=== PATIENT | female | born 1995 | race American Indian/Alaskan Native ===

== ENCOUNTER 2017-06-27 18:48 | Outpatient (CLI) | payer MEDICAID ==
[2017-06-27 19:26] VITALS: BP 114/60
[2017-06-27] MEDS ORDERED: LACTATED RINGERS 500 ML IV ONE (19:39)
[2017-06-27 20:23] LABS: Bilirubin,Urine NEG (Negative); Blood,Urine NEG (Negative); Ketones,Urine NEG (Negative); Leukocyte Esterase,Urine NEG (Negative); Mucus,Urine FEW /HPF; Nitrite,Urine NEG (Negative)
--- NOTE | 2017-06-29 10:14 | Ultrasound Report ---
OB ULTRASOUND History: well being, abdominal pain during . Comparison: None at this facility. Technique: Transabdominal ultrasound with Doppler interrogation. Gestation: Single Position: Cephalic Amniotic Fluid: Normal LIZZIE = 11.9 cm Placenta: Posterior, left lateral Placental Grade: 0 Heart Rate: 156 BPM Cervical length: 3.2 cm (Normal > 3 cm) NEUROANATOMY VISUALIZED: Choroid Plexus. 4 mm choroid plexus cyst on the left side is noted. Cisterna Magnum Cerebellum Lateral Ventricle ANATOMY VISUALIZED: Stomach Kidneys Bladder Diaphragm 4 Chamber Heart Heart 3 Vessel Cord Abd. Cord Insert SPINE VISUALIZED: Limited spine due to position The following are not demonstrated due to maternal body habitus or lie: Spine BPD: 5.9 cm = 24 w 1 d HC: 22.5 cm = 24 w 4 d AC: 19.9 cm = 24 w 4 d FL: 4.4 cm = 24 w 4 d HC/AC Ratio: 1.13 Cephalic Index: 76.3 Estimated Weight: 704 grams LMP: Uncertain Clinical age = w d EDC: US Gest. Age = 24 w 3 d EDC: 10/14/17
== END 2017-06-27 20:58 | disposition home or self-care (01) ==
LOC: TRG 18:48
PROVIDERS: ATTEND Obstetrics & Gynecology
DX: O47.02 False labor before 37 completed weeks of gestation, second trimester (principal); Z3A.24 24 weeks gestation of pregnancy
CPT/HCPCS: 36415; 76805; 81001; 82731; 96360; J7120

== ENCOUNTER 2017-10-09 09:36 | Inpatient (IN) | payer MEDICAID ==
[2017-10-09] MEDS ORDERED: BICITRA PO ONE ×2 (10:00→10:17)
[2017-10-09] MEDS ORDERED: ANCEF/STERILE WATER 2 GM/20 ML 2 GM/20 ML SYRINGE IV NR (10:00)
[2017-10-09] MEDS ORDERED: PEPCID IV ONE ×2 (10:00→10:17)
[2017-10-09] MEDS ORDERED: PITOCin/NS 20 UNIT/1000ML DRIP 20 UNITS/1,000 ML BAG IV SCH ×3 (10:00→15:00)
[2017-10-09] MEDS ORDERED: REGLAN IV ONE ×2 (10:00→10:17)
--- NOTE | 2017-10-09 10:07 | History and Physical Report ---
History of Present Illness Date of examination: 10/09/17 Date of admission: 10/09/17 09:36 Chief complaint: scheduled repeat c/sec at 39 weeks with BTL Past History Past Medical History: no pertinent history Past Surgical History: section (failure to dilate) Family/Genetic History: diabetes, hypertension Social history: no significant social history, single. denies: smoking, alcohol abuse, prescription drug abuse - Obstetrical History Expected Date of Delivery: 10/14/17 Actual Gestation: 39 Week(s) 2 Day(s) : 3 Para: 1 Hx # Term Pregnancies: 1 Number of Pregnancies: 0 Spontaneous Abortions: 1 Induced : 0 Number of Living Children: 1 Medications and Allergies Allergies Allergy/AdvReac Type Severity Reaction Status Date / Time No Known Allergies Allergy Verified 06/27/17 19:39 Active Meds: Active Medications Cefazolin Sodium (Ancef/Sterile Water 2 Gm/20 Ml) 2 gm in 20 mls @ 80 mls/hr IV PREOP NR PRN Reason: Protocol Stop: 10/09/17 23:00 Lactated Ringer's (Lactated Ringers) 1,000 mls @ 2,250 mls/hr IV PREOP BECKA Stop: 10/10/17 10:27 Oxytocin/Sodium Chloride (Pitocin/Ns 20 Unit/1000ml Drip) 20 units in 1,000 mls @ 0 mls/hr IV TITR BECKA PRN Reason: As Directed Review of Systems All systems: negative - Vital Signs Vital signs: Vital Signs Pulse BP 109 H 120/61 10/09/17 10:01 10/09/17 10:01 Temp Pulse Resp BP Pulse Ox 109 H 120/61 10/09/17 10:01 10/09/17 10:01 - Physical Exam Breasts: Positive: normal Cardiovascular: Regular rate, Normal S1 Lungs: Positive: Clear to auscultation, Normal air movement Abdomen: Positive: normal appearance, soft, normal bowel sounds. Negative: distention, tenderness, guarding Genitourinary (Female): Positive: normal external genitalia, normal perenium Vulva: both: normal Vagina: Positive: normal moisture Uterus: Positive: normal size Adnexa: both: normal Anus/Rectum: Positive: normal perianal skin Extremities: Positive: normal - Obstetrical FHR: category 1 Results All other labs normal. Assessment and Plan A/P HD#1 previous c/sec desires permananet contraception discussed perm minimal success in reversal discussed r/b/a of c/sec risk of bleeding infection damage to pelvic and non pelvic organs risk of blood clots, pain, abx, and will proceed with surgery
[2017-10-09] MEDS: LACTATED RINGERS 1,000 ML IV SCH ×2 (10:15→10:54)
[2017-10-09 10:42] LABS: Basophils % (Auto) 0.3 % (0.0-1.8); Eosinophils % (Auto) 0.6 % (0.0-4.3); Hemoglobin 10.8 gm/dl (10.1-14.3); Mean Corpuscular HGB Conc 34 % (30-34); Mean Corpuscular Hemoglobin 29 pg (28-32); Mean Corpuscular Volume 86 fl (79-97); Platelet Count 341 K/mm3 (140-440); Red Cell Distribution Width 14.4 % (13.2-15.2)
[2017-10-09] MEDS ORDERED: LACTATED RINGERS 1,000 ML IV SCH (11:00)
--- NOTE | 2017-10-09 12:59 | Anesthesia Consultation ---
Anesthesia Consult and Med Hx Date of service: 10/09/17 - Airway Anesthetic Teeth Evaluation: Good ROM Head & Neck: Adequate Mallampati Class: Class II Intubation Access Assessment: Probably Good - Pre-Operative Health Status ASA Pre-Surgery Classification: ASA2 Proposed Anesthetic Plan: Epidural, Spinal - Pulmonary Hx Asthma: No COPD: No Hx Pneumonia: No - Cardiovascular System Hx Hypertension: No - Central Nervous System Hx Seizures: No Hx Psychiatric Problems: No - Endocrine Hx Renal Disease: No Hx End Stage Renal Disease: No Hx Hypothyroidism: No Hx Hyperthyroidism: No - Hematic Hx Anemia: No Hx Sickle Cell Disease: No - Other Systems Hx Alcohol Use: No
[2017-10-09] MEDS ORDERED: SODIUM CHLORIDE FLUSH SYRINGE 10 ML IV NR ×2 (13:00→15:00)
[2017-10-09] MEDS ORDERED: MORPHINE IV PRN ×3 (13:00→14:49)
[2017-10-09] MEDS ORDERED: BENADRYL IV PRN (13:00)
[2017-10-09] MEDS ORDERED: NARCAN 0.4 MG/1 ML IV PRN ×2 (13:00→14:49)
[2017-10-09] MEDS ORDERED: PHENERGAN PR PRN (13:00)
[2017-10-09] MEDS ORDERED: ZOFRAN IV PRN (13:00)
--- NOTE | 2017-10-09 13:00 | Anesthesia Day of Surgery ---
Anesthesia Day of Surgery - Day of Surgery Patient Examined: Yes Patient H&P Reviewed: Yes Patient is NPO: Yes (@7AM)
[2017-10-09] MEDS ORDERED: MORPHINE ONE (13:11)
[2017-10-09] MEDS ORDERED: NEO SYNEPHRINE/NS Syringe(OR USE) IV ONE (13:51)
[2017-10-09] MEDS ORDERED: NACL 0.9% 1000 ML 1,000 ML ONE (13:51)
[2017-10-09] MEDS ORDERED: NACL 0.9% IR ONE (13:56)
[2017-10-09] MEDS ORDERED: WATER FOR IRRIG STERILE IR ONE (13:56)
[2017-10-09] MEDS ORDERED: XYLOCAINE MPF 2% ONE (14:25)
[2017-10-09] MEDS ORDERED: DILAUDID ONE (14:27)
[2017-10-09] MEDS ORDERED: MILK OF MAGNESIA PO PRN (14:49)
[2017-10-09] MEDS ORDERED: MYLICON PO PRN (14:49)
[2017-10-09] MEDS ORDERED: TUCKS PAD TP PRN (14:49)
[2017-10-09] MEDS ORDERED: LANSINOH TP PRN (14:49)
[2017-10-09] MEDS ORDERED: ANUCORT-HC PR PRN (14:49)
[2017-10-09] MEDS ORDERED: TYLENOL PO PRN (14:49)
[2017-10-09] MEDS ORDERED: SENOKOT PO PRN (14:49)
[2017-10-09] MEDS ORDERED: NORCO 5/325 PO PRN (14:49)
--- NOTE | 2017-10-09 14:58 | Procedure Note ---
OB Delivery Note - Delivery Date of Delivery: 10/09/17 Surgeon: GATO RIVERA Estimated blood loss: other (600cc) - Section Preop diagnosis: repeat , desires sterilization Postop diagnosis: other (ramy and lysis of adhesions) Disposition: PACU Complications: none Narrative: see op report - Infant A at 1 minute: 8 at 5 minutes: 9 Infant Gender: Female
--- NOTE | 2017-10-09 15:22 | Operative Report ---
Operative Report Operative Report: PREOPERATIVE DIAGNOSIS 1. Intrauterine at term. 2. 39+2 weeks 3. Desires permanent sterilization POSTOPERATIVE DIAGNOSES:1.-3 SOPHIA 4. Dense adhesions . PROCEDURE PERFORMED: Primary low-transverse section.BTL and lysis of adhesions SURGEON: GATO RIVERA MD ANESTHESIA: Epidural. ESTIMATED BLOOD LOSS: 600 mL. COMPLICATIONS: None. FINDINGS: Female infant in cephalic presentation, OA position, weight 6 pounds 11 ounces. Apgars were 8 at 1 minute and 9 at 5 minutes. Normal uterus, tubes, and ovaries were noted.with dense adhesion from anterior wall to muscle and periteneum INDICATIONS: The patient is a 22-year-old 3, para 1011 female, who presented to labor and delivery for scheduled repeat c/sec and BTL The procedure was described to the patient in detail including possible risks of bleeding, infection, injury to surrounding organs, and possible need for further surgery. Informed consent was obtained prior to proceeding with the procedure. PROCEDURE NOTE: The patient was taken to the operating room where epidural anesthesia was found to be adequate. The patient was prepped and draped in the usual sterile fashion in the dorsal supine position with a left-yin tilt. A Pfannenstiel skin incision was made with the scalpel and carried through to the underlying layer of fascia using the Bovie. The fascia was incised in the midline and extended laterally using Hernandez scissors. Mayito clamps were used to elevate the superior aspect of the fascial incision, which was elevated, and the underlying rectus muscles were dissected off bluntly and using Hernandez scissors. Attention was then turned to the inferior aspect of the fascial incision, which in similar fashion was grasped with Mayito clamps, elevated, and the underlying rectus muscles were dissected off bluntly and using Hernandez scissors. The rectus muscles were dissected in the midline. The peritoneum was bluntly dissected, entered, and extended superiorly and inferiorly with good visualization of the bladder. The bladder blade was inserted. The vesicouterine peritoneum was identified with pickups and entered sharply using Metzenbaum scissors. This incision was extended laterally and the bladder flap was created digitally. The bladder blade was reinserted. The lower uterine segment was incised in a transverse fashion using the scalpel and extended using manual traction. Clear fluid was noted. The was subsequently delivered atraumatically. The nose and mouth were bulb suctioned. The cord was clamped and cut. The infant was subsequently handed to the awaiting nursery nurse. Next, cord blood was obtained per the patient's request for cord blood donation, which took several minutes to perform. Subsequent to the collection of this blood, the placenta was removed spontaneously intact with a 3-vessel cord noted. The uterus was exteriorized and cleared of all clots and debris. The uterine incision was repaired in 2 layers using 0 chromic suture. Attention turned to the dense adhesion located anteriorly to the left attached to wall, muscle and peritenoum causing the uterus to turn 90 degrees.The placenta was delivered spontaneously intact with a three-vessel cord noted. The uterus was exteriorized and cleared of all clots and debris. The uterine incision was repaired in 2 layers using 0 chromic sutures. Hemostasis was visualized. Attention was turned to the right fallopian tube, which was grasped with [place] clamp using a modified Barbara method, a 2 cm of segment of tube ligated x2, transected and specimen was sent to pathology. Attention was then turned to the left fallopian tube, which was grasped with [place] clamp again using a modified Barbara method, a 2 cm segment of tube was ligated x2 and transected. Hemostasis was visualized bilaterally. The dense adhesion was double clamped with seperated with stitch of 0 vicryl repaired and excellent hemostasis with releasing. The uterus was returned to the abdomen, both fallopian tubes were visualized and were noted to be hemostatic. The uterine incision was reexamined and it was noted to be hemostatic. The uterine residual was hemostatic interseed placed The pelvis was copiously irrigated. The rectus muscles were reapproximated in the midline using 3-0 Vicryl. The fascia was closed with 0 PDS suture, and the skin was closed with 4-0 vicryl on Stanislav Needle. Sponge, lap, and instrument counts were correct x2. The patient was stable at the completion of the procedure and was subsequently transferred to the recovery room in stable condition.
[2017-10-09] MEDS: TORADOL IV PRN (18:02)
[2017-10-10 02:27] LABS: Hematocrit 29.3 % (30.3-42.9); Hemoglobin 9.6 gm/dl (10.1-14.3)
[2017-10-10] MEDS: TORADOL IV PRN (05:09)
[2017-10-10] MEDS ORDERED: BOOSTRIX IM ONE (06:00)
[2017-10-10] MEDS ORDERED: M-M-R II VACCINE SUB-Q ONE (06:00)
--- NOTE | 2017-10-10 08:46 | Progress Note ---
Assessment and Plan - Patient Problems (1) Previous delivery, delivered Current Visit: Yes Status: Acute Plan to address problem: routine postop care Subjective - Subjective Date of service: 10/10/17 Interval history: Patient is attempting to void after removal of taveras. She is tolerating a clear diet. Pain is controlled. Patient reports: appetite normal, voiding normally, pain well controlled Objective - Vital Signs Latest vital signs: Vital Signs Temp Pulse Resp BP BP Pulse Ox 10/10/17 04:00 98.6 F 66 16 118/81 10/09/17 23:30 98.7 F 69 18 107/68 10/09/17 20:20 98.6 F 68 16 126/69 10/09/17 16:25 97.4 F L 76 18 108/49 100 10/09/17 16:00 97.6 F 88 18 110/55 98 10/09/17 15:15 75 20 103/48 99 10/09/17 15:10 88 12 86/39 100 10/09/17 15:08 83 13 127/110 10/09/17 15:05 97.9 F 89 20 86/39 99 10/09/17 10:01 109 H 120/61 10/09/17 10:00 98.3 F 18 Intake and Output 10/09/17 10/10/17 10/10/17 22:59 06:59 14:59 Intake Total 1250 300 Output Total 350 300 Balance 900 0 Intake: IV 1250 Intake, Free Water 300 Output: Urine 350 300 Indwelling Catheter 150 300 Other: Total, Output Amount 150 300 - Exam Abdomen: Present: normal appearance, soft Incision: Present: dressed - Labs Labs: Abnormal lab results 10/09/17 10/10/17 Range/Units 10:15 02:01 Hgb 9.6 L (10.1-14.3) gm/dl Hct 29.3 L (30.3-42.9) % Dane % (Auto) 8.1 H (0.0-7.3) %
[2017-10-10] MEDS: FEOSOL PO SCH (10:00)
[2017-10-10] MEDS: PRENATAL VITAMIN PO SCH (10:00)
[2017-10-10] MEDS: MOTRIN PO PRN ×2 (14:04→21:30)
[2017-10-10] MEDS: PERCOCET 5/325 PO PRN (21:30)
[2017-10-11] MEDS: MOTRIN PO PRN (05:52)
[2017-10-11] MEDS: PERCOCET 5/325 PO PRN (05:52)
[2017-10-11 08:53] VITALS: BP 111/44
--- NOTE | 2017-10-11 11:26 | Progress Note ---
Assessment and Plan A: POD#2 s/p repeat and tubal ligation at term, Asymptomatic anemia P: Routine care. Discharge later today with incision check in two weeks. Subjective - Subjective Date of service: 10/11/17 Principal diagnosis: s/p repeat and BTL at term; Asymptomatic anemia Interval history: No overnight events. Pt would like to go home today. Patient reports: appetite normal, voiding normally, pain well controlled, flatus , ambulating normally, no bowel movement, no nauseated [place]: doing well Objective - Vital Signs Latest vital signs: Vital Signs Temp Pulse Resp BP Pulse Ox 10/11/17 08:52 98.1 F 91 H 20 111/44 97 10/11/17 00:58 97.4 F L 95 H 20 118/49 10/10/17 16:00 97.7 F 103 H 18 121/73 10/10/17 12:40 99.4 F 104 H 18 101/62 Intake and Output 10/10/17 10/11/17 10/11/17 22:59 06:59 14:59 Intake Total 240 720 Balance 240 720 Intake: Oral 240 Intake, Free Water 720 Other: Total, Intake Amount 240 # Voids Void 1 1 - Exam Breasts: Present: deferred Cardiovascular: Present: Regular rate Lungs: Present: Clear to auscultation Abdomen: Present: soft, normal bowel sounds Uterus: Present: fundal height below umbilicus Extremities: Present: normal Incision: Present: intact
[2017-10-11] MEDS: PRENATAL VITAMIN PO SCH (13:04)
[2017-10-11] MEDS: FEOSOL PO SCH (13:04)
--- NOTE | 2017-10-11 14:16 | Discharge Summary ---
Providers - Providers Date of Admission: 10/09/17 09:36 Date of discharge: 10/11/17 Attending physician: GATO GOOD MD Primary care physician: GATO GOOD MD Hospitalization Reason for admission: section Delivery: Procedure: section, bilateral tubal ligation, repeat low transverse Procedure details: Please see operative note. Other procedures: none complications: none Discharge diagnosis: IUP at term delivered [place] baby: female Hospital course: Pt underwent repeat which she tolerated well. Her postoperative course was uncomplicated and she met discharge criteria on PPD#2. She will follow up in [address] Good. Condition at discharge: Stable Disposition: - TO HOME OR SELFCARE - Discharge Diagnoses (1) Term of female Status: Acute (2) Anemia Status: Acute Qualifiers: Anemia type: unspecified type Qualified Code(s): D64.9 - Anemia, unspecified (3) Previous delivery, delivered Status: Acute Plan - Discharge Medications Prescriptions: Ferrous Sulfate [Feosol 325 MG tab] 325 mg PO BID #30 tablet Ibuprofen [Motrin] 600 mg PO Q8H PRN #30 tablet PRN Reason: Pain oxyCODONE /ACETAMINOPHEN [Percocet 5/325] 1 tab PO Q6HR PRN #30 tablet PRN Reason: Pain - Provider Discharge Summary Activity: routine, no sex for 6 weeks, no heavy lifting 4 weeks, no strenuous exercise Diet: routine Instructions: routine Additional instructions: [] Smoking cessation referral if applicable(refer to patient education folder for contact #) [] Refer to [facility]'s [facility] Booklet Call your doctor immediately for: * Fever > 100.5 * Heavy vaginal bleeding ( >1 pad per hour) * Severe persistent headache * Shortness of breath * Reddened, hot, painful area to leg or breast * Drainage or odor from incision. * Keep incision clean and dry at all times and follow doctor's instructions regarding bathing/showering - Follow up plan Follow up: GATO GOOD MD [Primary Care Provider] - 10/25/17 (incision check- please call to schedule appt ) Forms: [facility] Discharge Summary
--- NOTE | 2017-10-11 14:19 | Discharge Summary ---
Providers - Providers Date of Admission: 10/09/17 09:36 Date of discharge: 10/11/17 Attending physician: GATO RIVERA MD Primary care physician: GATO RIVERA MD Hospitalization Reason for admission: section Delivery: Condition at discharge: Good Disposition: DC-01 TO HOME OR SELFCARE Plan - Discharge Medications Prescriptions: Ferrous Sulfate [Feosol 325 MG tab] 325 mg PO BID #30 tablet Ibuprofen [Motrin] 600 mg PO Q8H PRN #30 tablet PRN Reason: Pain oxyCODONE /ACETAMINOPHEN [Percocet 5/325] 1 tab PO Q6HR PRN #30 tablet PRN Reason: Pain - Provider Discharge Summary Activity: routine, no sex for 6 weeks, no heavy lifting 4 weeks Additional instructions: [] Smoking cessation referral if applicable(refer to patient education folder for contact #) [] Refer to [facility]'s [facility] Booklet Call your doctor immediately for: * Fever > 100.5 * Heavy vaginal bleeding ( >1 pad per hour) * Severe persistent headache * Shortness of breath * Reddened, hot, painful area to leg or breast * Drainage or odor from incision. * Keep incision clean and dry at all times and follow doctor's instructions regarding bathing/showering - Follow up plan Follow up: GATO RIVERA MD [Primary Care Provider] - 7 Days Forms: [facility] Discharge Summary
--- NOTE | 2017-10-11 16:19 | Query-Anemia ---
Malcom Sanchez Florentino Date:_10/11/17 Rn Family Practice/CDS:__Gian Phone#:_[phone] Exercise your independent professional judgment when responding to this query. Questions asked do not imply a particular answer is desired or expected. We greatly appreciate your clarification on this issue. Clinical Documentation States: 22 year old female was admitted on 10/09/17 . Operative Report(Dr. Cyndi Good on 10/09/17) states" PREOPERATIVE DIAGNOSIS:Intrauterine at term. 2. 39+2 weeks PROCEDURE PERFORMED: Primary low-transverse section.BTL and lysis of adhesion ESTIMATED BLOOD LOSS: 600 mL. DONATIONS ATTENDANT - Discharge Summary(Dr. Balderas on 10/11/12) states" 2) Anemia Status: Acute " Clinical Findings Show: 10/09/17 10/10/17 Hgb 10.8 9.6 Hct 32.0 29.3 Etiology: [ ] Anemia due to acute blood loss [ ] Anemia due to chronic blood loss [ ] Anemia secondary to ESRD [ ] Anemia secondary to neoplastic disease [ ] Iron deficiency anemia due to malabsorption [ ] GI Bleed from: [ ] Anemia of chronic disease ,Other: [ ] Precipitous Drop in Hemoglobin [ ] Precipitous Drop in Hematocrit [ ] Other: [ ] Unable to determine [ ] Comment/Explanation: Present on Admission: [ ] Yes (Y) [ ] Clinically undeterminable (W) [ ] No (N) Please also document response in your Progress Notes and/or Discharge Summary and indicate if the condition was present on admission. AMELIED
== END 2017-10-11 16:20 | disposition home or self-care (01) | DRG 765 ==
LOC: APU 09:36 → OB 16:30
PROVIDERS: ADMIT Obstetrics & Gynecology; ATTEND Obstetrics & Gynecology
PROC: 10D00Z1 Extraction of Products of Conception, Low, Open Approach (ICD-10-PCS; principal; 2017-10-09)
PROC: 0DNW0ZZ Release Peritoneum, Open Approach (ICD-10-PCS; 2017-10-09)
PROC: 0UT70ZZ Resection of Bilateral Fallopian Tubes, Open Approach (ICD-10-PCS; 2017-10-09)
PROC: 3E0234Z Introduction of Serum, Toxoid and Vaccine into Muscle, Percutaneous Approach (ICD-10-PCS; 2017-10-10)
DX: O34.211 Maternal care for low transverse scar from previous cesarean delivery (principal); D62 Acute posthemorrhagic anemia; O99.62 Diseases of the digestive system complicating childbirth; K66.0 Peritoneal adhesions (postprocedural) (postinfection); O99.03 Anemia complicating the puerperium; Z3A.39 39 weeks gestation of pregnancy; Z37.0 Single live birth; Z23 Encounter for immunization; Z82.49 Family history of ischemic heart disease and other diseases of the circulatory system; Z83.3 Family history of diabetes mellitus; Z30.2 Encounter for sterilization
CPT/HCPCS: 36415; 85014; 85018; 85025; 86850; 86900; 86901; 88302; 99211; C9250; G0463; J0690; J1170; J1885; J2270; J2370; J2590; J2765; J7030; J7120